=== PATIENT | male | born 1975 | race Caucasian/White ===

== ENCOUNTER 2018-02-16 12:26 | Emergency (ER) | payer OTHER ==
[~2018-02-16] VITALS: Ht 180.3 cm; Wt 87.7 kg
[~2018-02-16 12:26] MED LIST: FLEXERIL10 MG PO; HYDROCODON-ACE1 EAC7 PO; MOTRIN600 MG PO; NOHOMEMEDS; ONE-A-DAY MEN'1 EACH PO; ULTRAM50 MG PO
[2018-02-16 13:06] LABS: HEMATOCRIT 43.4 % (38.0-50.0); HEMOGLOBIN 14.7 G/DL (12.5-16.6); MCH 30.5 PG (29.0-34.0); MCHC 33.9 G/DL (30.0-36.0); PLATELET COUNT 291 K/uL (156-360); RBC DIS.WIDTH-CV 12.7 % (11.8-14.6); RBC DIS.WIDTH-SD 42.2 % (39-53); RED BLOOD COUNT 4.82 M/uL (4.00-5.50); WHITE BLOOD COUNT 8.7 K/uL (4.1-10.2)
[2018-02-16 13:16] LABS: ALBUMIN 4.4 g/dL (3.2-4.8); CHLORIDE 105 mEq/L (99-109); POTASSIUM 4.2 mEq/L (3.7-5.4); SODIUM 139 mEq/L (136-147)
[2018-02-16 13:18] LABS: GLUCOSE 80 mg/dL (70-99)
[2018-02-16 13:19] LABS: APPEARANCE CLEAR ((CLEAR)); BILIRUBIN NEGATIVE; BLOOD NEGATIVE; COLOR YELLOW ((YELLOW)); GLUCOSE (STRIP) NEGATIVE; KETONES NEGATIVE; LEUKOCYTES NEGATIVE; NITRITE NEGATIVE; PROTEIN (STRIP) NEGATIVE; UCUL ADDED? NO; UROBILINOGEN 0.2 MG/DL (0.2-1.0)
[2018-02-16 13:19] LABS: TOTAL PROTEIN 7.2 g/dL (6.4-8.3)
[2018-02-16 13:20] LABS: TOTAL BILIRUBIN 0.6 mg/dL (0.0-1.0)
[2018-02-16 13:22] LABS: ALKALINE PHOSPHATASE 69 IU/L (3-129); CREATININE 1.1 mg/dL (0.6-1.3); GFR ESTIMATE (CALCULATED) > 59 mL/min/ (58.99-99999)
[2018-02-16 13:23] LABS: UREA NITROGEN (BUN) 20 mg/dL (9-23)
[2018-02-16 13:24] LABS: AST (GOT) 28 IU/L (2-34)
[2018-02-16 13:25] LABS: ALT (GPT) 33 IU/L (3-49)
[2018-02-16 13:53] LABS: TROP-I INTERPRETATION NEGATIVE; TROPONIN-I < 0.01 ng/mL (0.0-0.30)
[2018-02-16 16:59] LABS: TROP-I INTERPRETATION NEGATIVE; TROPONIN-I < 0.01 ng/mL (0.0-0.30)
[2018-02-16] MEDS ORDERED: NORCO 5/3251 TABLET PO (17:02)
[2018-02-16 17:15] VITALS: BP 127/74
== END 2018-02-16 17:25 | disposition home or self-care (01) ==
LOC: EME 12:26
PROVIDERS: Physician Assistant Medical
DX: R10.9 Unspecified abdominal pain (principal); F17.200 Nicotine dependence, unspecified, uncomplicated; Z87.39 Personal history of other diseases of the musculoskeletal system and connective tissue; Z88.6 Allergy status to analgesic agent; Z88.2 Allergy status to sulfonamides; Z88.0 Allergy status to penicillin
CPT/HCPCS: 71046; 74176; 80053; 81003; 84484; 85027; 93005; 99281; 99284